=== PATIENT | female | born 1980 | race Caucasian/White ===

== ENCOUNTER 2017-06-19 14:46 | Emergency (ER) | payer MEDICAID ==
[~2017-06-19] VITALS: Ht 162.6 cm; Wt 99.0 kg
[~2017-06-19 14:46] MED LIST: HYDR-3498 PO; PREN-39 PO
[2017-06-19 14:49] VITALS: Ht 162.6 cm; Wt 99.0 kg
[2017-06-19 18:15] LABS: URINE BLOOD (Dip) POC 2+ (NEGATIVE)
[2017-06-19] MEDS ORDERED: CIPR500T4 PO (18:25)
[2017-06-19] MEDS ORDERED: PHEN-537 PO (18:26)
[2017-06-19 18:54] VITALS: BP 128/69; PULSE 71; RESP 18; TEMP 98.5
--- NOTE | 2017-06-19 19:31 | ERD ---
ER Documentation Chief Complaint Date/Time DATE: 06/19/17 TIME: 19:28 Chief Complaint PAINFUL URINATION , LOW BACK PAIN X 3 DAYS HPI This is a 37-year-old female presents to the ER with painful urination. Patient states that she also has suprapubic pain that radiates to her flank. Patient denies any fevers or chills. Denies any nausea vomiting or diarrhea. She denies any vaginal discharge. ROS 12 point review of systems was done, all negative except per HPI. Medications Home Meds Active Scripts Phenazopyridine Hcl* (Pyridium*) 100 Mg Tab, 100 MG PO TID Y for URINARY PAIN, # 9 TAB Prov:GREGORY CHUNG C 06/19/17 Ciprofloxacin Hcl* (Ciprofloxacin Hcl*) 500 Mg Tablet, 500 MG PO BID for 10 Days , TAB Prov:JULIETDELANOGREGORY C 06/19/17 Hydrocodone Bit-Acetaminophen* ([place]*) 5-325 Mg Tab, 1 TAB PO BID Y for PAIN, # 20 TAB 0 Refills Prov:FE FERREIRA PA-C 03/12/16 Reported Medications Vits W-Ca,Fe,Fa(<1MG) ( Vitamins) 1 Tab Tablet, 1 TAB PO DAILY 12/08/13 Allergies Allergies: Coded Allergies: No Known Drug Allergies (Verified Allergy, Mild, 03/12/16) PMhx/Soc Medical and Surgical Hx: pt denies Medical Hx, pt denies Surgical Hx History of Surgery: Yes (caesarian section) Anesthesia Reaction: No Hx Neurological Disorder: No Hx Respiratory Disorders: No Hx Cardiac Disorders: No Hx Psychiatric Problems: No Hx Miscellaneous Medical Probl: No Hx Alcohol Use: No Hx Substance Use: No Hx Tobacco Use: No Smoking Status: Never smoker Physical Exam Vitals Vital Signs Date Time Temp Pulse Resp B/P Pulse Ox O2 Delivery O2 Flow Rate FiO2 06/19/17 18:54 98.5 71 18 128/69 99 Room Air 06/19/17 14:49 98.7 68 18 126/65 99 Physical Exam GENERAL: The patient is well developed and appropriate for usual state of health , in no apparent distress. HEENT: Atraumatic. CHEST: Clear to auscultation bilaterally. There are no rales, wheezes or rhonchi. HEART: Regular rate and rhythm. No murmurs, clicks, rubs or gallops. ABDOMEN: Soft, nontender and nondistended. Good bowel sounds. No rebound or guarding. No gross peritonitis. No gross organomegaly or masses. No Reyes sign or McBurney point tenderness. Positive suprapubic pain BACK: Positive CVA tenderness NEURO: Alert and oriented. SKIN: There is no apparent rash or petechia. The skin is warm and dry. Results 24 hrs Laboratory Tests Test 06/19/17 18:22 Bedside Urine pH (LAB) 6.0 Bedside Urine Protein (LAB) 1+ Bedside Urine Glucose (UA) Negative Bedside Urine Ketones (LAB) Negative Bedside Urine Blood 2+ Bedside Urine Nitrite (LAB) Positive Bedside Urine Leukocyte Esterase (L Trace Procedures/MDM This is a 37-year-old female presents her with urinary frequency and dysuria and CVA tenderness on physical examination. Patient states she has had recurrent urinary tract infections in the past, at this time patient will be treated for possible pyelonephritis she does have CVA tenderness and a significant urinary tract infection. Patient is afebrile and well-appearing, she is able to tolerate p.o. fluids. She will be sent home with Cipro and Pyridium. She is to follow-up with her primary care doctor within 1-2 days or return to ER sooner if symptoms worsen. My medical decision making sure with patient she understands and agrees with plan. Departure Diagnosis: Primary Impression: Pyelonephritis Condition: Stable Patient Instructions: Pyelonephritis, Female (Adult) Additional Instructions: Llame al doctor MAANA y charlie natanael JEANNA PARA DENTRO DE 1-2 STONE.Dgale a la secretaria que nosotros le instruimos hacer esta jeanna.Avise o llame si guzman condicin se empeora antes de la jeanna. Regresa aqui si peor o no mejor. GREGORY CHUNG Jun 19, 2017 19:31
== END 2017-06-19 18:55 | disposition home or self-care (01) ==
LOC: FTE 14:46
DX: N12 Tubulo-interstitial nephritis, not specified as acute or chronic (principal)
CPT/HCPCS: 81003; Z7502; 99283